=== PATIENT | female | born 2000 | race Caucasian/White ===

== ENCOUNTER → 2024-05-04 07:40 | Outpatient (REF) | payer BC, SELFPAY ==
[2024-05-04 09:38] LABS: % Basophils 0.8 % (0-2); % Eosinophils 4.7 % (0-6); % Immature Granulocytes 0.3 % (0-0.5); % Lymphocytes 33.1 % (20.5-51.1); % Monocytes 7.4 % (1.7-9.3); % Neutrophils 53.7 % (42.2-75.2); Absolute Basophils 0.1 10^3/uL (0-0.2); Absolute Eosinophils 0.4 10^3/uL (0-0.7); Absolute Lymphocytes 2.5 10^3/uL (1.2-3.4); Absolute Monocytes 0.6 10^3/uL (0.1-0.6); Hematocrit 43.7 % (37.0-47.0); Hemoglobin 15.1 g/dL (12.0-16.0); Mean Corp Hgb Conc. 34.6 g/dL (33.0-37.0); Mean Corpuscular Hgb 28.5 pg (27.0-31.0); Mean Corpuscular Volume 82.6 fL (81.0-99.0); Mean Platelet Volume 11.1 fL (7.4-10.4); Nucleated Red Blood Cells % 0 %; Platelet Count 290 10^3/uL (130-400); Red Blood Cell Count 5.29 10^6/uL (4.20-5.40); Red Cell Dist. Width 12.5 % (11.5-14.5); White Blood Cell Count 7.5 10^3/uL (4.8-10.8)
[2024-05-04 10:01] LABS: Urine Albumin Negative (Neg - Trace); Urine Bilirubin Negative (Negative); Urine Character Clear (Clear); Urine Color Yellow; Urine Glucose Negative (Negative); Urine Ketone Negative (Negative); Urine Leukocyte Trace (Negative); Urine Nitrite Negative (Negative); Urine Occult Blood Negative (Negative); Urine Urobilinogen Negative (Neg - 1+)
[2024-05-04 10:09] LABS: ALT (SGPT) 22 U/L (0-35); AST (SGOT) 19 U/L (14-36); Alkaline Phosphatase 63 U/L (38-126); Blood Urea Nitrogen 9 mg/dl (7-17); Calcium 10.3 mg/dl (8.4-10.2); Carbon Dioxide 19 mmol/L (22-30); Chloride 103 mmol/L (98-107); Glucose 105 mg/dl (70-99); HDL Cholesterol 57 mg/dl; LDL Cholesterol, Calculated 125 mg/dl; Potassium 4.2 mmol/L (3.5-5.1); Sodium 140 mmol/L (135-145); Total Bilirubin 1.8 mg/dl (0.2-1.3); Total Cholesterol 199 mg/dl (50-199); Total Protein 7.5 g/dl (6.3-8.2); Triglyceride 85 mg/dl (10-149); Urine Bacteria Few (Negative); Urine Red Blood Cell 0-2 /HPF (0-2); Very Low Density Lipoprotein 17 mg/dl (0-30); eGFR > 60.00
[2024-05-04 10:11] LABS: TSH Reflex To Free T4 1.54 uIU/ml (0.47-4.68)
== END ==
LOC: HWLAB 07:40
PROVIDERS: ATTENDING PHYSICIAN Nurse Practitioner Adult Health
DX: Z00.01 Encounter for general adult medical examination with abnormal findings (principal)
CPT/HCPCS: 36415; 80053; 80061; 81003; 81015; 84443; 85025

== ENCOUNTER → 2024-11-23 07:26 | Outpatient (REF) | payer BC, SELFPAY ==
[2024-11-23 09:58] LABS: Calcium 9.8 mg/dl (8.4-10.2); Direct Bilirubin 0.2 mg/dl (0.0-0.4); Total Bilirubin 1.8 mg/dl (0.2-1.3)
[2024-11-23 10:00] LABS: Glycohemoglobin (HgbA1c) 5.5 % (4.0-5.6)
[2024-11-23 11:13] LABS: Vitamin D, 25-OH*** < 12.8 ng/mL (30-80)
[2024-11-23 18:18] LABS: GGTP 17 U/L (12-43)
[2024-11-24 10:37] LABS: Intact PTH 44.9 pg/ml (13.6-85.8)
[2024-11-24 20:18] LABS: Haptoglobin 124 mg/dL (30-200)
== END ==
LOC: HWLAB 07:26
PROVIDERS: ATTENDING PHYSICIAN Nurse Practitioner Adult Health
DX: R17 Unspecified jaundice (principal); E83.52 Hypercalcemia; R73.01 Impaired fasting glucose
CPT/HCPCS: 36415; 82247; 82248; 82306; 82977; 83010; 83036; 83970